=== PATIENT | female | born 1980 | race Caucasian/White ===

== ENCOUNTER 2019-10-27 00:41 | Emergency (ER) | payer BC ==
[~2019-10-27] VITALS: Ht 175.3 cm; Wt 61.2 kg
[2019-10-27] MEDS ORDERED: CETI10TA24 PO (01:18)
[2019-10-27] MEDS ORDERED: DIPH25CA58 PO (01:18)
--- NOTE | 2019-10-27 01:27 | PHYS DOC ---
General Adult EDM: Chief Complaint: SKIN PROBLEM HPI: HPI: 38-year-old female presents with hives. Patient got poison adia about 2 weeks ago. She was prescribed prednisone for about 7 to 10 days. She took her last dose yesterday. Starting yesterday and continuing today she has redeveloped a rash. It is not in the same areas where she had the poison adia. It seems to appear at random in different sites of her body. She has taken multiple doses of Benadryl without effect. It is intensely pruritic. Her children who also got poison adia have not had any new rashes or lesions. The patient does admit to getting hives intermittently once or twice a year for no known reason. She is also had vomiting and nausea today which is new. She denies any new exposures or any other source that she can think of. She has no known allergies. She denies fever chills. Review of Systems: Review of Systems: Constitutional: Denies fever or chills Eyes: Denies change in visual acuity HENT: Denies nasal congestion or sore throat Respiratory: Denies cough or shortness of breath Cardiovascular: Denies chest pain or edema GI: Denies abdominal pain, nausea, vomiting, bloody stools or diarrhea : Denies dysuria Musculoskeletal: Denies back pain or joint pain Integument: Rash Neurologic: Denies headache, focal weakness or sensory changes Endocrine: Denies polyuria or polydipsia Lymphatic: Denies swollen glands Psychiatric: Denies depression or anxiety Heart Score: Risk Factors: Risk Factors: DM, Current or recent (<one month) smoker, HTN, HLP, family history of CAD, obesity. Risk Scores: Score 0 - 3: 2.5% MACE over next 6 weeks - Discharge Home Score 4 - 6: 20.3% MACE over next 6 weeks - Admit for Clinical Observation Score 7 - 10: 72.7% MACE over next 6 weeks - Early Invasive Strategies Current Medications: Current Meds: Current Medications Medications (Trade) Dose Ordered Sig/Noel Start Time Stop Time Status Last Admin Dose Admin Famotidine (Pepcid Vial) 20 mg 1X ONCE 10/27/19 01:30 10/27/19 01:31 UNV Methylprednisolone Sodium Succinate (SOLU-Medrol 125MG VIAL) 125 mg 1X ONCE 10/27/19 01:30 10/27/19 01:31 UNV Ondansetron HCl (Zofran) 4 mg 1X ONCE 10/27/19 01:30 10/27/19 01:31 UNV Sodium Chloride 1,000 ml @ 1,000 mls/hr 1X ONCE 10/27/19 01:30 10/27/19 02:29 UNV Allergies: Allergies: Allergies Coded Allergies Type Severity Reaction Last Updated Verified Penicillins Allergy Unknown 10/27/19 Yes Physical Exam: PE: Constitutional: Well developed, well nourished, no acute distress, non-toxic appearance. [] HENT: Normocephalic, atraumatic, bilateral external ears normal, oropharynx mo ist, no oral exudates, nose normal. [] Eyes: PERRLA, EOMI, conjunctiva normal, no discharge. [] Neck: Normal range of motion, no tenderness, supple, no stridor. [] Cardiovascular:Heart rate regular rhythm, no murmur [] Lungs & Thorax: Bilateral breath sounds clear to auscultation [] Abdomen: Bowel sounds normal, soft, no tenderness, no masses, no pulsatile masses. [] Skin: Areas of urticaria on the patient's bilateral upper legs, left arm, upper chest. [] Back: No tenderness, no CVA tenderness. [] Extremities: No tenderness, no cyanosis, no clubbing, ROM intact, no edema. [] Neurologic: Alert and oriented X 3, normal motor function, normal sensory function, no focal deficits noted. [] Psychologic: Affect normal, judgement normal, mood normal. [] EKG: EKG: [] Radiology/Procedures: Radiology/Procedures: [] Course & Med Decision Making: Course & Med Decision Making Pertinent Labs and Imaging studies reviewed. (See chart for details) The patient appears to be having systemic allergic reaction to something. I do not know if this is rebound systemic reaction to stopping prednisone after the poison adia or if it is an unrelated reaction. I will treat her with 125 Solu- Medrol, 20 mg of Pepcid, and a liter of normal saline. We will also give her Zofran for her vomiting. Patient has had no further vomiting. She is feeling a little bit better. I will discharge her with a prescription for additional prednisone. She will wait and see if she needs it at home. She is stable for discharge at this time. [] Dragon Disclaimer: Dragon Disclaimer: This electronic medical record was generated, in whole or in part, using a voice recognition dictation system. Departure Departure: Impression: Primary Impression: Allergic reaction Qualified Codes: T78.40XA - Allergy, unspecified, initial encounter Disposition: HOME/RESIDENCE PRIOR TO ADM Condition: STABLE Referrals: HILARIO LOVELL MD (PCP) Patient Instructions: Hives, [id number] Scripts Prednisone (PREDNISONE) 10 Mg Tablet 10 MG PO UD for PREDNISONE TAPER, #30 TAB 0 Refills Take 4 tablets by mouth daily for 3 days, then take 3 tablets by mouth daily for 3 days, then take 2 tablets by mouth daily for 3 days, then take 1 tablet by mouth daily x 3 days, then stop. Prov: OMER DONATO DO 10/27/19 OMER DONATO DO October 27, 2019 01:27
[2019-10-27] MEDS ORDERED: FAMOTIDINE 20 MG/2 ML VIAL IVP ONE (01:30)
[2019-10-27] MEDS ORDERED: ONDANSETRON PF 4 MG/2 ML VIAL. IVP ONE (01:30)
[2019-10-27] MEDS ORDERED: IV NORMAL SALINE 1,000ML 1,000 ML IV ONE (01:30)
[2019-10-27] MEDS ORDERED: methylPREDNISolone SOD SUCC PF 125 MG/2 ML VIAL. IV ONE (01:30)
[2019-10-27] MEDS ORDERED: ONDANSETRON PF 4 MG/2 ML VIAL. ONE (01:31)
[2019-10-27] MEDS ORDERED: FAMOTIDINE 20 MG/2 ML VIAL ONE (01:32)
[2019-10-27] MEDS ORDERED: methylPREDNISolone SOD SUCC PF 125 MG/2 ML VIAL. ONE (01:32)
[2019-10-27 02:31] LABS: BASO # 0.1 x10^3/uL (0.0-0.2); BASO % 1 % (0-3); CALCIUM 8.2 mg/dL (8.5-10.1); EOS # 0.7 x10^3/uL (0.0-0.7); EOS % 8 % (0-3); GFR 62.7; HEMATOCRIT 42.6 % (36.0-47.0); HEMOGLOBIN 14.1 g/dL (12.0-15.5); LYMPH # 3.3 x10^3/uL (1.0-4.8); LYMPH % 37 % (24-48); MEAN CORPUSCULAR HEMOGLOBIN 29 pg (25-35); MEAN CORPUSCULAR HGB CONC 33 g/dL (31-37); MEAN CORPUSCULAR VOLUME 86 fL (79-100); MONO # 0.7 x10^3/uL (0.0-1.1); MONO % 8 % (0-9); NEUT # 4.2 x10^3uL (1.8-7.7); NEUT % 46 % (31-73); PLATELET COUNT 291 x10^3/uL (140-400); POTASSIUM 3.5 mmol/L (3.5-5.1); RED BLOOD COUNT 4.94 x10^6/uL (3.50-5.40); RED CELL DISTRIBUTION WIDTH 13.7 % (11.5-14.5); WHITE BLOOD COUNT 9.1 x10^3/uL (4.0-11.0)
[2019-10-27 02:36] LABS: ALBUMIN 3.8 g/dL (3.4-5.0); ALBUMIN/GLOBULIN RATIO 1.1 (1.0-1.7); TOTAL BILIRUBIN 0.2 mg/dL (0.2-1.0); TOTAL PROTEIN 7.4 g/dL (6.4-8.2)
[2019-10-27] MEDS ORDERED: PRED-220 PO (02:45)
[2019-10-27 02:50] VITALS: BP 135/98
== END 2019-10-27 02:58 | disposition home or self-care (01) ==
LOC: ER 00:41
DX: T78.40XA Allergy, unspecified, initial encounter (principal); R11.2 Nausea with vomiting, unspecified; Z88.0 Allergy status to penicillin; X58.XXXA Exposure to other specified factors, initial encounter
CPT/HCPCS: 36415; 80053; 85025; 96361; 96374; 96375; 99285; J2405; J2930; J3490; J7030